=== PATIENT | female | born 1945 | race Caucasian/White ===

== ENCOUNTER → 2016-08-11 | Outpatient (CLI) | payer MEDICARE, OTHER ==
[~2016-08-11] MED LIST: DIAZ5TAB4 PO; HYDR-2666 PO; IOHEXOL 180 MG/ML 10 ML VIAL. IT ONE; LIDOCAINE 1% Multi-Dose 20 ML VIAL. ID ONE; LISI1TAB5 PO; ZOLP10TA4 PO
--- NOTE | 2016-08-11 14:59 | KCIC ---
PROCEDURE Lumbar myelogram 08/11/2016 HISTORY Low back pain which radiates down both legs for the last 2-3 years. TECHNIQUE After the risks and benefits of the procedure were explained to the patient, written informed consent was obtained. The patient was placed prone on the fluoroscopy table and the lower back was prepped and draped in sterile fashion. 1 percent lidocaine was used as a local anesthetic. Under fluoroscopic guidance, the thecal sac of the lumbar cistern was punctured at the L2-3 level using a 25 gauge Brandon needle. After confirming clear CSF return, 15 cc Omnipaque 180 were injected into the thecal sac of the lumbar cistern under fluoroscopic guidance. Following this the needle was removed and hemostasis achieved at the puncture site. A sterile Band-Aid was placed on the skin puncture site. AP, lateral, bilateral oblique and semi erect neutral lateral and flexion and extension lateral digital spot radiographs of the lumbar spine were obtained. Following this the patient was taken to CT where a CT scan of the lumbar spine was performed. That will be reported separately. The patient was then taken to the recovery area were she was observed for approximately 30 minutes prior to discharge home. Te patient was sent home with an instruction sheet. The patient tolerated the procedure well and there were no immediate complications. The total fluoroscopic time for this study was 50 seconds. Nine digital spot radiographs were obtained. FINDINGS Minimal lateral curvature of the lumbar spine is seen convex to the right. Degenerative changes consisting of vertebral endplate sclerosis, varying degrees of disc space narrowing and minimal to mild anterior and posterior vertebral body osteophyte formation are seen throughout the lumbar disc spaces. Atherosclerotic calcification of the abdominal aorta is noted. The alignment of the lumbar vertebrae is maintained on the flexion and extension radiographs. A very mild anterior extradural defect is seen upon the contrast column at the L1-2 level. A moderate anterior extradural defect is seen upon the contrast column at the L2-3 level. Mild to moderate anterior extradural defects are seen upon the contrast column at the L3-4 and L4-5 levels. A mild anterior extradural defect is seen upon the contrast column at L5-S1. There is no evidence of complete block of contrast at any level involving the lumbar spine. Degenerative changes are seen involving the facet joints of the mid and lower lumbar spine. IMPRESSION Degenerative changes are seen throughout the lumbar spine as outlined above. Electronically signed by: Eliezer Rangel MD (Aug 11, 2016 14:57:52)
--- NOTE | 2016-08-11 15:02 | KCIC ---
PROCEDURE AP and lateral lumbar spine radiographs to include flexion and extension views 08/11/2016 HISTORY Low back pain which radiates down both legs for the last 2-3 years. FINDINGS Standing AP, 2 neutral lateral and flexion and extension lateral digital radiographs of the lumbar spine were obtained. Surgical clips are seen within the superior pelvis. Minimal S-shaped curvature of the thoracolumbar spine is noted. Degenerative changes consisting of varying degrees of disc space narrowing, subchondral sclerosis and minimal to mild anterior and posterior vertebral body osteophyte formation are seen involving the lower thoracic and throughout the lumbar disc spaces. Atherosclerotic calcification of the abdominal aorta and its branches is noted. Degenerative changes are seen involving the facet joints of the mid and lower lumbar spine. No fracture or subluxation is seen. The alignment of the lumbar vertebrae is maintained on the flexion and extension radiographs. IMPRESSION Degenerative changes are seen involving the lower thoracic and throughout the lumbar spine as outlined above. No acute osseous abnormality is seen. Electronically signed by: Eliezer Rangel MD (Aug 11, 2016 15:01:04)
--- NOTE | 2016-08-11 15:15 | KCIC ---
PROCEDURE CT lumbar myelogram 08/11/2016 HISTORY Low back pain which radiates down both legs for the last 2-3 years. TECHNIQUE This study was performed after the patient's lumbar myelogram. Contiguous, 0.6 millimeter axial sections were obtained through the lumbar spine. 3 millimeter reconstructed sagittal, axial and coronal images were obtained. One or more of the following individualized dose reduction techniques were utilized for this study: 1. Automated exposure control. 2. Adjustment of the mA and/or kV according to patient size. 3. Use of iterative reconstruction technique. FINDINGS Comparison is made to the patient's outside MRI of the lumbar spine dated 03/23/2016. Additional comparison is made to the patient's lumbar myelogram performed earlier today. Sagittal and coronal reconstructed images demonstrate very mild S-shaped curvature of the thoracolumbar spine. Degenerative changes consisting varying degrees of disc space narrowing, subchondral sclerosis and minimal to mild anterior and posterior vertebral body osteophyte formation are seen throughout the lumbar disc spaces. Vacuum disc phenomenon are seen at the L2-3, L3-4, L4-5 and L5-S1 disc spaces. Scattered atherosclerotic calcification of the abdominal aorta and its branches is noted. At the L1-2 disc space there is a mild generalized disc bulge. Degenerative changes are seen involving the facet joints bilaterally. There is mild ligamentum flavum hypertrophy. These findings do not result in significant central spinal canal or neural foraminal stenosis. At the L2-3 disc space there is mild to moderate generalized disc bulge. The disc bulge is eccentric to the right. Degenerative changes are seen involving the facet joints bilaterally. There is mild to moderate ligamentum flavum hypertrophy. These findings when combined result in mild central spinal canal stenosis. Mild right neural foraminal stenosis is seen. The left neural foramina is patent. At the L 3- 4 disc space there is a mild to moderate generalized disc bulge. Degenerative changes are seen along the facet joints bilaterally. There is mild ligamentum flavum hypertrophy bilaterally. These findings when combined result in mild central spinal canal stenosis. Neural foraminal stenosis is seen. At the L4-5 disc space there is a mild to moderate generalized disc bulge. Degenerative changes are seen involving the facet joints bilaterally. There is moderate ligamentum flavum hypertrophy bilaterally. These findings when combined result in mild central spinal canal stenosis. No neural foraminal stenosis is seen. At the L5-S1 disc space there is a mild to moderate generalized disc bulge. Degenerative changes are seen involving the facet joints, left greater than right. These findings do not result in significant central spinal canal stenosis. Mild to moderate left greater than right neural foraminal stenosis is seen. IMPRESSION The changes of degenerative disc disease are seen throughout the lumbar spine. These findings result in mild central spinal canal stenosis at L2-3, L3-4 and L4-5. Mild right neural foraminal stenosis is seen at L2-3. Mild to moderate left greater than right neural foraminal stenosis is seen at L5-S1. Electronically signed by: Eliezer Rangel MD (Aug 11, 2016 15:14:14)
== END | disposition home or self-care (01) ==
LOC: KCIC 09:37
PROVIDERS: ATTEND Neurological Surgery
DX: M51.36 Other intervertebral disc degeneration, lumbar region (principal); M48.06 Spinal stenosis, lumbar region; M25.78 Osteophyte, vertebrae; M47.896 Other spondylosis, lumbar region
CPT/HCPCS: 72110; 72132; 72265

== ENCOUNTER → 2016-08-27 | Outpatient (CLI) | payer MEDICARE, OTHER ==
[~2016-08-27] MED LIST changes: -IOHEXOL 180 MG/ML 10 ML VIAL. IT ONE; +IOHEXOL 240 MG/ML 50ML VIAL. PO ONE; +IOHEXOL 300 MG/ML 100ML VIAL. IV ONE; -LIDOCAINE 1% Multi-Dose 20 ML VIAL. ID ONE
--- NOTE | 2016-08-27 13:42 | KCIC ---
PROCEDURE CT of the abdomen and pelvis with contrast HISTORY Lumbar plexopathy. Colon resection due to diverticulitis. Bilateral radiculopathy. COMPARISON None TECHNIQUE 100 cc Omnipaque the nose contrast. Oral contrast. Exposure: One or more of the following individualized dose reduction techniques were utilized for this exam: 1. Automated exposure control. 2. Adjustment of the mA and/or kV according to patient size. 3. Use of iterative reconstruction technique. FINDINGS There are some small calcified granulomas in the lung bases. No evidence of pneumoperitoneum. There are several low-density lesions identified within the liver. Largest measures 19 millimeters diameter and measures water density compatible with cyst. Spleen unremarkable pancreas unremarkable. Small adrenal nodules bilaterally, measuring 12 millimeters on the left and 11 millimeters on the right, transversely. These are too small to accurately measure density characteristics. The kidneys are unremarkable. No calcified gallstone. The aorta is mildly calcified, without aneurysm. Small hiatal hernia. There is a small structure containing an air level between the pancreatic head and the duodenum, measuring 3 cm in diameter. Uncertain significance, but this could represent a duodenal diverticulum or ulcer. Pancreatic head mass is considered less likely. No evidence of bowel obstruction. There is colonic diverticulosis. The appendix is normal. No evidence of ascites. There are surgical clips in the lower abdomen. No evidence of significant lymph node enlargement. There is lower thoracic and lumbar spondylosis. There does appear to be some stenosis at the lumbosacral junction. The urinary bladder and other pelvic structures are obscured by artifact from right hip replacement. IMPRESSION 1. Small air-containing structure between the pancreatic head and the duodenum, could represent a duodenal diverticulum or ulcer. Pancreatic head mass considered less likely. Note there are no acute inflammatory changes or fluid in this area. 2. Small bilateral adrenal gland masses. If there is no prior history of cancer, these are most likely benign, but consider follow-up CT or MRI in 12 months. If there is a history of cancer, consider MRI of the adrenals or PET scan. 3. Small hepatic lesions compatible with cysts. Electronically signed by: Nikita Shelton MD (Aug 27, 2016 13:40:22)
== END | disposition home or self-care (01) ==
LOC: KCIC CT 11:02
PROVIDERS: ATTEND Neurological Surgery
DX: G54.1 Lumbosacral plexus disorders (principal); J84.10 Pulmonary fibrosis, unspecified; M48.07 Spinal stenosis, lumbosacral region
CPT/HCPCS: 74177; 82565; Q9966; Q9967